=== PATIENT | female | born 1985 | race American Indian/Alaskan Native ===

== ENCOUNTER 2016-08-20 13:44 | Inpatient (IN) | payer MEDICAID ==
--- NOTE | 2016-08-20 13:53 | History and Physical Report ---
History of Present Illness Date of examination: 08/20/16 Date of admission: 08/20/16 13:44 Chief complaint: Induction of Labour History of present illness: 30-year-old at 37+5 wks (via 3rd tri sono) presents for induction of labor, [facility]. care complicated by morbid obesity, late presentation at > 30 weeks, chronic hypertension, GDM and HSV-2. She was seen by BALJEET, started on Aldomet 500 mg twice a day. She was also advised to provide a sugar log to [facility] on a weekly basis. 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 denies: smoking, alcohol abuse, prescription drug abuse, IV drug use - Obstetrical History Expected Date of Delivery: 09/05/16 Actual Gestation: 37 Week(s) 5 Day(s) : 4 Para: 2 Medications and Allergies Allergies Allergy/AdvReac Type Severity Reaction Status Date / Time No Known Allergies Allergy Unverified 05/30/15 20:33 Home Medications Medication Instructions Recorded Confirmed Last Taken Type amLODIPine [Norvasc] 5 mg PO DAILY 05/30/15 05/30/15 Unknown History Review of Systems Constitutional: no fever, no sweats Cardiovascular: high blood pressure, no chest pain, no syncope, no lightheadedness, no shortness of breath Respiratory: no shortness of breath, no dyspnea on exertion Gastrointestinal: no abdominal pain, no nausea, no vomiting Genitourinary: no vaginal bleeding, no vaginal discharge, no leakage of fluid - Physical Exam Cardiovascular: Regular rate, Normal S1, Normal S2 Lungs: Positive: Clear to auscultation, Normal air movement Abdomen: Positive: normal appearance, soft. Negative: distention, tenderness, guarding, rigidity Genitourinary (Female): Positive: normal external genitalia Uterus: Positive: enlarged (EFW ~ 3800). Negative: tender Extremities: Positive: normal - Obstetrical FHR: category 1 Cervical Dilatation: 4 Cervical Effacement Percentage: 80 station: -2 Results Result Diagrams: 08/20/16 16:10 All other labs normal. Assessment and Plan A: 30 y/o at 37+5 here for induction -BPP 03/10 today at [facility] Issues -GDMA 2 -CHTN on meds -Morbid Obesity -HSV 2 P: -Admit -Routine labour labs -Start Mag for persistent severe range BP's -SSI coverage -Induction with pitocin -Anticipate - Patient Problems (1) 37 or more weeks gestation of Current Visit: Yes Status: Acute (2) Hypertension affecting Current Visit: Yes Status: Acute (3) Gestational diabetes Current Visit: Yes Status: Acute (4) Non compliance with medical treatment Current Visit: Yes Status: Acute
[2016-08-20] MEDS ORDERED: PITOCin/NS 30 UNIT/500ML 500 ML IV SCH ×2 (14:00→14:40)
[2016-08-20] MEDS ORDERED: BRETHINE SUB-Q PRN (14:00)
[2016-08-20] MEDS ORDERED: BRETHINE IVP PRN (14:00)
[2016-08-20] MEDS ORDERED: ePHEDrine SULFATE IV PRN (14:00)
[2016-08-20] MEDS ORDERED: PITOCin/NS 20 UNIT/1000ML DRIP 1,000 ML IV SCH (14:00)
[2016-08-20] MEDS ORDERED: D50W (25GM) IV PRN (14:19)
[2016-08-20] MEDS ORDERED: NORMODYNE IV PRN (14:21)
[2016-08-20] MEDS ORDERED: APRESOLINE IV PRN (14:21)
[2016-08-20] MEDS ORDERED: MINERAL OIL PO PRN (14:35)
[2016-08-20] MEDS ORDERED: POLYCILLIN/NS 2 GM/100 ML 100 ML IV ONE (15:00)
[2016-08-20] MEDS ORDERED: XYLOCAINE 2% INFILTRATI ONE (15:00)
[2016-08-20] MEDS: LACTATED RINGERS 1,000 ML IV SCH (16:42)
[2016-08-20 17:13] LABS: Hematocrit 34.8 % (30.3-42.9); Hemoglobin 11.5 gm/dl (10.1-14.3); Mean Corpuscular HGB Conc 33 % (30-34); Mean Corpuscular Hemoglobin 29 pg (28-32); Mean Corpuscular Volume 87 fl (79-97); Platelet Count 153 K/mm3 (140-440); Red Blood Count 3.99 M/mm3 (3.65-5.03); Red Cell Distribution Width 15.1 % (13.2-15.2); White Blood Count 11.1 K/mm3 (4.5-11.0)
[2016-08-20 17:40] LABS: Alanine Aminotransferase 23 units/L (7-56); Albumin 3.7 g/dL (3.9-5); Albumin/Globulin Ratio 0.9 %; Alkaline Phosphatase 156 units/L (35-129); Bilirubin,Total 0.4 mg/dL (0.1-1.2); Total Protein 7.7 g/dL (6.3-8.2)
[2016-08-20 17:41] LABS: Bilirubin,Direct < 0.2 mg/dL (0-0.2); Bilirubin,Indirect 0.2 mg/dL
--- NOTE | 2016-08-20 17:50 | Event Note ---
Date: 08/20/16 Called to see patient refusing to have her insulin. Explained to her that she has gestational diabetes, and that we have her on a sliding scale protocol. Based on the protocol, she requires insulin at this time for her benefit and her baby's benefit. Explained that she might have to sign out AGAINST MEDICAL ADVICE if she chooses to refuse therapy. Patient has accepted insulin at this time
[2016-08-20] MEDS: ALDOMET PO SCH ×2 (19:26→22:00)
[2016-08-20] MEDS ORDERED: PEPCID PO ONE (20:54)
[2016-08-20] MEDS ORDERED: AMBIEN PO ONE (20:55)
[2016-08-20] MEDS: POLYCILLIN/NS 1 GM/50 ML 50 ML IV SCH (21:17)
[2016-08-21] MEDS: LACTATED RINGERS 1,000 ML IV SCH ×2 (01:35→13:25)
[2016-08-21] MEDS: POLYCILLIN/NS 1 GM/50 ML 50 ML IV SCH ×4 (02:45→18:25)
--- NOTE | 2016-08-21 06:33 | Progress Note ---
Assessment and Plan A: 30 y/o at 37+6 here for induction -BPP 03/10 today at [facility] Issues -GDMA 2 -CHTN on meds -Morbid Obesity -HSV 2 P: -Continue present care -Anticipate - Patient Problems (1) 37 or more weeks gestation of Current Visit: Yes Status: Acute (2) Hypertension affecting Current Visit: Yes Status: Acute (3) Gestational diabetes Current Visit: Yes Status: Acute (4) Non compliance with medical treatment Current Visit: Yes Status: Acute Subjective - Subjective Date of service: 08/21/16 Interval history: Patient seen and examined; she is on pit at 20 mu/min. BP and BS at acceptable levels On exam, she is 5-6/70/-2 and post cervix Still declines an epidural Patient reports: new complaints, movement normal, contractions, no loss of fluid, no vaginal bleeding Objective - Vital Signs Vital Signs: Vital Signs - 12hr 08/20/16 08/20/16 08/20/16 19:25 19:26 19:37 Pulse Rate 100 H 100 H 111 H Blood Pressure 129/93 129/93 O2 Sat by Pulse 98 Oximetry 08/20/16 08/20/16 08/20/16 19:42 19:47 19:52 Pulse Rate 110 H 102 H 103 H Blood Pressure O2 Sat by Pulse 97 98 98 Oximetry 08/20/16 08/20/16 08/20/16 19:57 20:02 20:07 Pulse Rate 107 H 105 H 102 H Blood Pressure O2 Sat by Pulse 98 98 98 Oximetry 08/20/16 08/20/16 08/20/16 20:12 20:17 20:30 Pulse Rate 106 H 108 H 106 H Blood Pressure O2 Sat by Pulse 100 98 99 Oximetry 08/20/16 08/20/16 08/20/16 20:34 20:35 20:40 Pulse Rate 99 H 101 H 99 H Blood Pressure 132/76 O2 Sat by Pulse 99 100 Oximetry 08/20/16 08/20/16 08/20/16 21:34 22:34 23:34 Pulse Rate 105 H 109 H 101 H Blood Pressure 130/90 125/79 114/56 O2 Sat by Pulse Oximetry 08/20/16 08/20/16 08/21/16 23:36 23:54 00:34 Pulse Rate 105 H 101 H 103 H Blood Pressure 113/56 112/57 117/58 O2 Sat by Pulse Oximetry 08/21/16 08/21/16 08/21/16 01:34 02:35 03:35 Pulse Rate 97 H 97 H 101 H Blood Pressure 124/61 140/69 118/66 O2 Sat by Pulse Oximetry 08/21/16 08/21/16 04:34 05:34 Pulse Rate 92 H 105 H Blood Pressure 109/55 117/59 O2 Sat by Pulse Oximetry - Exam FHR: category 1 Cervical Dilatation: 5.6 station: -2 - Labs Labs: Abnormal Labs 08/20/16 08/20/16 08/20/16 15:47 16:10 16:10 WBC 11.1 H POC Glucose 160 H Alkaline Phosphatase 156 H Albumin 3.7 L 08/20/16 08/20/16 22:01 23:32 WBC POC Glucose 69 L 142 H Alkaline Phosphatase Albumin Laboratory Results - last 24 hr 08/20/16 08/20/16 08/20/16 15:47 16:10 16:10 WBC 11.1 H RBC 3.99 Hgb 11.5 Hct 34.8 MCV 87 MCH 29 MCHC 33 RDW 15.1 Plt Count 153 POC Glucose 160 H Total Bilirubin Direct Bilirubin Indirect Bilirubin AST ALT Alkaline Phosphatase Total Protein Albumin Albumin/Globulin Ratio Blood Type O POSITIVE Antibody Screen Negative 08/20/16 08/20/16 08/20/16 16:10 22:01 23:32 WBC RBC Hgb Hct MCV MCH MCHC RDW Plt Count POC Glucose 69 L 142 H Total Bilirubin 0.4 Direct Bilirubin < 0.2 Indirect Bilirubin 0.2 AST 31 ALT 23 Alkaline Phosphatase 156 H Total Protein 7.7 Albumin 3.7 L Albumin/Globulin Ratio 0.9 Blood Type Antibody Screen 08/21/16 06:08 WBC RBC Hgb Hct MCV MCH MCHC RDW Plt Count POC Glucose 81 Total Bilirubin Direct Bilirubin Indirect Bilirubin AST ALT Alkaline Phosphatase Total Protein Albumin Albumin/Globulin Ratio Blood Type Antibody Screen
[2016-08-21] MEDS ORDERED: TYLENOL PO ONE (12:15)
--- NOTE | 2016-08-21 12:16 | Progress Note ---
Assessment and Plan - Patient Problems (1) 37 or more weeks gestation of Current Visit: Yes Status: Acute (2) Hypertension affecting Current Visit: Yes Status: Acute (3) Gestational diabetes Current Visit: Yes Status: Acute (4) Non compliance with medical treatment Current Visit: Yes Status: Acute Subjective - Subjective Date of service: 08/21/16 Interval history: Patient seen and examined; she is on pit at 20 mu/min. BP and BS at acceptable levels On exam, she is 5-6/70/-2 and post cervix Still declines an epidural Patient reports: new complaints, movement normal, contractions, no loss of fluid, no vaginal bleeding Objective - Vital Signs Vital Signs: Vital Signs - 12hr 08/21/16 08/21/16 08/21/16 00:34 01:34 02:35 Temperature Pulse Rate 103 H 97 H 97 H Respiratory Rate Blood Pressure 117/58 124/61 140/69 O2 Sat by Pulse Oximetry 08/21/16 08/21/16 08/21/16 03:35 04:34 05:34 Temperature Pulse Rate 101 H 92 H 105 H Respiratory Rate Blood Pressure 118/66 109/55 117/59 O2 Sat by Pulse Oximetry 08/21/16 08/21/16 08/21/16 06:35 08:34 08:45 Temperature 98.5 F Pulse Rate 106 H 108 H 110 H Respiratory 18 Rate Blood Pressure 130/77 124/78 O2 Sat by Pulse 98 Oximetry 08/21/16 08/21/16 08/21/16 08:50 08:55 09:00 Temperature Pulse Rate 116 H 104 H 109 H Respiratory Rate Blood Pressure O2 Sat by Pulse 97 98 97 Oximetry 08/21/16 08/21/16 08/21/16 10:34 11:50 11:53 Temperature Pulse Rate 106 H 103 H 107 H Respiratory Rate Blood Pressure 110/68 126/79 O2 Sat by Pulse 98 Oximetry 08/21/16 08/21/16 08/21/16 11:55 12:00 12:05 Temperature 98.7 F Pulse Rate 102 H 105 H 109 H Respiratory 18 Rate Blood Pressure O2 Sat by Pulse 97 97 98 Oximetry - Exam FHR: category 1 - Labs Labs: Abnormal Labs 08/20/16 08/20/16 08/20/16 15:47 16:10 16:10 WBC 11.1 H POC Glucose 160 H Alkaline Phosphatase 156 H Albumin 3.7 L 08/20/16 08/20/16 22:01 23:32 WBC POC Glucose 69 L 142 H Alkaline Phosphatase Albumin Laboratory Results - last 24 hr 08/20/16 08/20/16 08/20/16 15:47 16:10 16:10 WBC 11.1 H RBC 3.99 Hgb 11.5 Hct 34.8 MCV 87 MCH 29 MCHC 33 RDW 15.1 Plt Count 153 POC Glucose 160 H Total Bilirubin Direct Bilirubin Indirect Bilirubin AST ALT Alkaline Phosphatase Total Protein Albumin Albumin/Globulin Ratio Blood Type O POSITIVE Antibody Screen Negative 08/20/16 08/20/16 08/20/16 16:10 22:01 23:32 WBC RBC Hgb Hct MCV MCH MCHC RDW Plt Count POC Glucose 69 L 142 H Total Bilirubin 0.4 Direct Bilirubin < 0.2 Indirect Bilirubin 0.2 AST 31 ALT 23 Alkaline Phosphatase 156 H Total Protein 7.7 Albumin 3.7 L Albumin/Globulin Ratio 0.9 Blood Type Antibody Screen 08/21/16 06:08 WBC RBC Hgb Hct MCV MCH MCHC RDW Plt Count POC Glucose 81 Total Bilirubin Direct Bilirubin Indirect Bilirubin AST ALT Alkaline Phosphatase Total Protein Albumin Albumin/Globulin Ratio Blood Type Antibody Screen
--- NOTE | 2016-08-21 17:16 | Progress Note ---
Assessment and Plan A: 30 y/o at 37+6 here for induction -Cat 1 tracing Issues -GDMA 2 -CHTN on meds -Morbid Obesity -HSV 2 P: -AROMed with clear fluid -IUPC placed -Anticipate - Patient Problems (1) 37 or more weeks gestation of Current Visit: Yes Status: Acute (2) Hypertension affecting Current Visit: Yes Status: Acute (3) Gestational diabetes Current Visit: Yes Status: Acute (4) Non compliance with medical treatment Current Visit: Yes Status: Acute Subjective - Subjective Date of service: 08/21/16 Interval history: Patient seen and examined; she is on pit at 12 mu/min. BP and BS at acceptable levels On exam, she is 6/70/-1 and post cervix Still declines an epidural Patient reports: new complaints, movement normal, contractions, no loss of fluid, no vaginal bleeding Objective - Vital Signs Vital Signs: Vital Signs - 12hr 08/21/16 08/21/16 08/21/16 05:34 06:35 08:34 Temperature Pulse Rate 105 H 106 H 108 H Respiratory Rate Blood Pressure 117/59 130/77 124/78 O2 Sat by Pulse Oximetry 08/21/16 08/21/16 08/21/16 08:45 08:50 08:55 Temperature 98.5 F Pulse Rate 110 H 116 H 104 H Respiratory 18 Rate Blood Pressure O2 Sat by Pulse 98 97 98 Oximetry 08/21/16 08/21/16 08/21/16 09:00 10:34 11:50 Temperature Pulse Rate 109 H 106 H 103 H Respiratory Rate Blood Pressure 110/68 O2 Sat by Pulse 97 98 Oximetry 08/21/16 08/21/16 08/21/16 11:53 11:55 12:00 Temperature 98.7 F Pulse Rate 107 H 102 H 105 H Respiratory 18 Rate Blood Pressure 126/79 O2 Sat by Pulse 97 97 Oximetry 08/21/16 08/21/16 08/21/16 12:05 12:25 12:51 Temperature Pulse Rate 109 H 104 H 106 H Respiratory Rate Blood Pressure 123/68 O2 Sat by Pulse 98 99 Oximetry 08/21/16 08/21/16 08/21/16 12:56 13:25 13:55 Temperature Pulse Rate 104 H 105 H 103 H Respiratory Rate Blood Pressure 120/75 120/76 120/75 O2 Sat by Pulse Oximetry 08/21/16 08/21/16 08/21/16 14:25 14:55 15:13 Temperature Pulse Rate 101 H 96 H 101 H Respiratory Rate Blood Pressure 110/58 115/77 O2 Sat by Pulse 98 Oximetry 08/21/16 08/21/16 08/21/16 15:18 15:25 15:55 Temperature Pulse Rate 108 H 99 H 101 H Respiratory Rate Blood Pressure 122/75 132/77 O2 Sat by Pulse 98 Oximetry 08/21/16 08/21/16 08/21/16 16:27 16:43 16:48 Temperature Pulse Rate 100 H 105 H 105 H Respiratory Rate Blood Pressure 137/84 O2 Sat by Pulse 99 98 Oximetry 08/21/16 08/21/16 16:53 16:55 Temperature Pulse Rate 104 H 105 H Respiratory Rate Blood Pressure 118/91 O2 Sat by Pulse 98 Oximetry - Exam FHR: category 1 Cervical Dilatation: 6 station: -1 - Labs Labs: Abnormal Labs 08/20/16 08/20/16 08/20/16 15:47 16:10 16:10 WBC 11.1 H POC Glucose 160 H Alkaline Phosphatase 156 H Albumin 3.7 L 08/20/16 08/20/16 22:01 23:32 WBC POC Glucose 69 L 142 H Alkaline Phosphatase Albumin Laboratory Results - last 24 hr 08/20/16 08/20/16 08/20/16 16:10 16:10 22:01 POC Glucose 69 L Total Bilirubin 0.4 Direct Bilirubin < 0.2 Indirect Bilirubin 0.2 AST 31 ALT 23 Alkaline Phosphatase 156 H Total Protein 7.7 Albumin 3.7 L Albumin/Globulin Ratio 0.9 Blood Type O POSITIVE Antibody Screen Negative 08/20/16 08/21/16 23:32 06:08 POC Glucose 142 H 81 Total Bilirubin Direct Bilirubin Indirect Bilirubin AST ALT Alkaline Phosphatase Total Protein Albumin Albumin/Globulin Ratio Blood Type Antibody Screen
[2016-08-21] MEDS ORDERED: SUBLIMAZE IV ONE (17:25)
[2016-08-21] MEDS ORDERED: SUBLIMAZE ONE (17:32)
[2016-08-21] MEDS: ALDOMET PO SCH (17:40)
[2016-08-21] MEDS ORDERED: HEMABATE IM ONE ×2 (18:58→19:02)
--- NOTE | 2016-08-21 19:14 | Procedure Note ---
OB Delivery Note - Delivery Date of Delivery: 08/21/16 Surgeon: SIERRA DAVID Estimated blood loss: other (600 cc) - Vaginal Delivery presentation: vertex Delivery position: OA Intrapartum events: gestational hypertension (Chronic HTN), hemorrhage, other(please specify) (Diabetes Mellitus) Delivery induction: oxytocin Delivery augmentation: rupture of membranes, pitocin Delivery monitor: external FHT, external uterine, internal uterine Route of delivery: Delivery placenta: spontaneous Delivery cord: 3 umbilical vessels Episiotomy: none Delivery laceration: none Anesthesia: none - A at 1 minute: 8 at 5 minutes: 9 Infant Gender: Female (Del @ 18:54, weight is 7#0 or 3168 gms)
[2016-08-21] MEDS ORDERED: LANSINOH TP PRN (19:15)
[2016-08-21] MEDS ORDERED: ANUCORT-HC PR PRN (19:15)
[2016-08-21] MEDS ORDERED: ZOFRAN IV PRN (19:15)
[2016-08-21] MEDS ORDERED: BENADRYL PO PRN (19:15)
[2016-08-21] MEDS ORDERED: DERMOPLAST TP PRN (19:15)
[2016-08-21] MEDS ORDERED: TYLENOL PO PRN (19:15)
[2016-08-21] MEDS ORDERED: PHENERGAN PO PRN (19:15)
[2016-08-21] MEDS ORDERED: PHENERGAN PR PRN (19:15)
[2016-08-21] MEDS ORDERED: NORCO 5/325 PO PRN (19:15)
[2016-08-21] MEDS ORDERED: DULCOLAX PR PRN (19:15)
[2016-08-21] MEDS ORDERED: MILK OF MAGNESIA PO PRN (19:15)
[2016-08-21] MEDS ORDERED: TUCKS PAD TP PRN (19:15)
[2016-08-21] MEDS ORDERED: SENOKOT S PO SCH (20:00)
[2016-08-21] MEDS ORDERED: SODIUM CHLORIDE FLUSH SYRINGE 10 ML IV NR (20:00)
[2016-08-21] MEDS ORDERED: PITOCin/NS 20 UNIT/1000ML DRIP 1,000 ML IV SCH (20:00)
[2016-08-21] MEDS ORDERED: COLACE PO SCH (22:00)
[2016-08-21] MEDS: MOTRIN PO SCH (22:41)
[2016-08-21] MEDS: FEOSOL PO SCH (22:42)
[2016-08-22] MEDS: ALDOMET PO SCH ×2 (05:20→22:00)
[2016-08-22] MEDS: MOTRIN PO SCH ×3 (05:21→18:30)
--- NOTE | 2016-08-22 07:14 | Progress Note ---
Assessment and Plan - Patient Problems (1) (normal spontaneous vaginal delivery) Diagnosis Date: 08/22/16 Current Visit: Yes Status: Acute Plan to address problem: A: S/P - PPD #1 Doing well Chronic hypertension - stable on Aldomet 500mg BID GDM - stable without medication P: May go home tomorrow Subjective - Subjective Date of service: 08/22/16 Principal diagnosis: s/p - PPD #1 Interval history: Pt is feeling well without complaints. Bleeding improved. Patient reports: appetite normal, voiding normally, pain well controlled, flatus , ambulating normally [place]: doing well, nursing well Objective - Vital Signs Latest vital signs: Vital Signs Temp Pulse Pulse Resp BP BP Pulse Ox 08/22/16 05:20 90 100/52 08/22/16 04:35 98.0 F 82 20 101/56 08/22/16 00:40 98.2 F 96 H 20 118/60 08/21/16 21:45 98.2 F 91 H 20 128/77 08/21/16 20:38 90 140/73 08/21/16 20:23 95 H 136/86 08/21/16 19:53 88 135/93 08/21/16 19:38 99 H 131/88 08/21/16 19:23 101 H 150/82 08/21/16 19:10 97.1 F L 20 08/21/16 18:29 90 100 08/21/16 18:25 86 140/80 08/21/16 18:24 86 94 08/21/16 18:19 95 H 96 08/21/16 18:16 100 H 94 08/21/16 18:15 90 141/83 08/21/16 18:14 88 99 08/21/16 18:05 20 08/21/16 18:01 106 H 99 08/21/16 17:56 114 H 169/103 100 08/21/16 17:51 99 H 99 08/21/16 17:46 111 H 100 08/21/16 17:41 102 H 99 08/21/16 17:40 101 H 141/72 08/21/16 17:35 20 08/21/16 17:28 111 H 99 08/21/16 17:26 100 H 141/72 08/21/16 17:23 106 H 99 08/21/16 17:18 109 H 98 08/21/16 17:13 106 H 98 08/21/16 16:55 105 H 118/91 08/21/16 16:53 104 H 98 08/21/16 16:48 105 H 98 08/21/16 16:45 98.4 F 20 08/21/16 16:43 105 H 99 08/21/16 16:27 100 H 137/84 08/21/16 15:55 101 H 132/77 08/21/16 15:25 99 H 122/75 08/21/16 15:18 108 H 98 08/21/16 15:13 101 H 98 08/21/16 14:55 96 H 115/77 08/21/16 14:25 101 H 110/58 08/21/16 13:55 103 H 120/75 08/21/16 13:25 105 H 120/76 08/21/16 12:56 104 H 120/75 08/21/16 12:51 106 H 99 08/21/16 12:25 104 H 123/68 08/21/16 12:05 109 H 98 08/21/16 12:00 105 H 97 08/21/16 11:55 98.7 F 102 H 18 97 08/21/16 11:53 107 H 126/79 08/21/16 11:50 103 H 98 08/21/16 10:34 106 H 110/68 08/21/16 09:00 109 H 97 08/21/16 08:55 104 H 98 08/21/16 08:50 116 H 97 08/21/16 08:45 98.5 F 110 H 18 98 08/21/16 08:34 108 H 124/78 Intake and Output 08/21/16 08/22/16 08/22/16 22:59 06:59 14:59 Intake Total 958 480 Balance 958 480 Intake: IV 718 Lactated Ringers 1,000 ml 656 @ 125 mls/hr IV DIRECT DANIEL Rx#:[id number] PITOCin/NS 30 UNIT/500ML 62 500 ML @ 2 mls/hr IV TITR DANIEL Rx#:[id number] Oral 240 480 Other: Total, Intake Amount 240 240 # Voids Void 1 1 Estimated Blood Loss 600 - Exam Breasts: Present: deferred Cardiovascular: Present: Regular rate Lungs: Present: Clear to auscultation Abdomen: Present: normal appearance, soft Uterus: Present: normal, firm, fundal height below umbilicus Extremities: Present: normal - Labs Labs: Abnormal lab results 08/21/16 08/21/16 Range/Units 19:48 22:58 POC Glucose 108 H 108 H (70-105) Laboratory Tests 08/20/16 08/20/16 08/20/16 15:47 16:10 16:10 WBC 11.1 H RBC 3.99 Hgb 11.5 Hct 34.8 MCV 87 MCH 29 MCHC 33 RDW 15.1 Plt Count 153 POC Glucose 160 H Total Bilirubin Direct Bilirubin Indirect Bilirubin AST ALT Alkaline Phosphatase Total Protein Albumin Albumin/Globulin Ratio Blood Type O POSITIVE Antibody Screen Negative 08/20/16 08/20/16 08/20/16 16:10 22:01 23:32 WBC RBC Hgb Hct MCV MCH MCHC RDW Plt Count POC Glucose 69 L 142 H Total Bilirubin 0.4 Direct Bilirubin < 0.2 Indirect Bilirubin 0.2 AST 31 ALT 23 Alkaline Phosphatase 156 H Total Protein 7.7 Albumin 3.7 L Albumin/Globulin Ratio 0.9 Blood Type Antibody Screen 08/21/16 08/21/16 08/21/16 06:08 19:48 22:58 WBC RBC Hgb Hct MCV MCH MCHC RDW Plt Count POC Glucose 81 108 H 108 H Total Bilirubin Direct Bilirubin Indirect Bilirubin AST ALT Alkaline Phosphatase Total Protein Albumin Albumin/Globulin Ratio Blood Type Antibody Screen 08/22/16 08/22/16 07:06 08:12 WBC RBC Hgb 9.1 L Hct 27.3 L D MCV MCH MCHC RDW Plt Count POC Glucose 73 Total Bilirubin Direct Bilirubin Indirect Bilirubin AST ALT Alkaline Phosphatase Total Protein Albumin Albumin/Globulin Ratio Blood Type Antibody Screen
[2016-08-22 07:41] LABS: Hematocrit 27.3 % (30.3-42.9); Hemoglobin 9.1 gm/dl (10.1-14.3)
--- NOTE | 2016-08-22 08:57 | Discharge Summary ---
Providers - Providers Date of Admission: 08/20/16 13:44 Date of discharge: 08/23/16 Attending physician: SIERRA DAVID Primary care physician: RADAMES MAN Hospitalization Reason for admission: induction of labor, IUP at term, other (Chronic hypertension; GDM) Delivery: Episiotomy: none Laceration: none Other procedures: none complications: none Discharge diagnosis: IUP at term delivered [place] baby: female Hospital course: Unremarkable. Condition at discharge: Good Disposition: DISCHARGED TO HOME OR SELFCARE - Discharge Diagnoses (1) (normal spontaneous vaginal delivery) Status: Resolved (2) Chronic hypertension Status: Chronic Plan - Discharge Medications Prescriptions: Acetaminophen [Acetaminophen TAB] 325 mg PO Q6HR PRN #30 tablet PRN Reason: Pain Ferrous Sulfate [Feosol 325 MG tab] 325 mg PO BID #60 tablet Methyldopa [Aldomet] 500 mg PO BID #60 tablet Multivitamin with Iron [Multivitamins with Iron] 1 each PO DAILY #30 tablet - Provider Discharge Summary Activity: routine, no sex for 6 weeks, no heavy lifting 4 weeks, no strenuous exercise Diet: routine Instructions: routine Additional instructions: [] Smoking cessation referral if applicable(refer to patient education folder for contact #) [] Refer to [facility]'s [facility] Booklet Call your doctor immediately for: * Fever > 100.5 * Heavy vaginal bleeding ( >1 pad per hour) * Severe persistent headache * Shortness of breath * Reddened, hot, painful area to leg or breast * Drainage or odor from incision. * Keep incision clean and dry at all times and follow doctor's instructions regarding bathing/showering Follow up in office in 1 week for BP and BS check - Follow up plan Follow up: RADAMES MAN MD [Primary Care Provider] - 7 Days JAROD MONSIVAIS MD [Staff Physician] - 7 Days
[2016-08-22] MEDS ORDERED: PRENATAL VITAMIN PO SCH (10:00)
[2016-08-22] MEDS: FEOSOL PO SCH ×2 (10:07→22:00)
[2016-08-23] MEDS: MOTRIN PO SCH
[2016-08-23] MEDS: ALDOMET PO SCH (10:35)
[2016-08-23 15:44] VITALS: BP 130/80
== END 2016-08-23 14:50 | disposition home or self-care (01) | DRG 774 ==
LOC: LD 13:44 → OB 08-21 21:02
PROVIDERS: ADMIT Obstetrics & Gynecology Gynecology; ATTEND Obstetrics & Gynecology Gynecology
PROC: 10E0XZZ Delivery of Products of Conception, External Approach (ICD-10-PCS; principal; 2016-08-21)
PROC: 10907ZC Drainage of Amniotic Fluid, Therapeutic from Products of Conception, Via Natural or Artificial Opening (ICD-10-PCS; 2016-08-21)
PROC: 3E033VJ Introduction of Other Hormone into Peripheral Vein, Percutaneous Approach (ICD-10-PCS; 2016-08-21)
PROC: 10H07YZ Insertion of Other Device into Products of Conception, Via Natural or Artificial Opening (ICD-10-PCS; 2016-08-21)
DX: O24.429 Gestational diabetes mellitus in childbirth, unspecified control (principal); O72.1 Other immediate postpartum hemorrhage; O99.214 Obesity complicating childbirth; E66.01 Morbid (severe) obesity due to excess calories; B00.9 Herpesviral infection, unspecified; Z37.0 Single live birth; Z3A.37 37 weeks gestation of pregnancy; Z68.35 Body mass index [BMI] 35.0-35.9, adult; Z91.14 Patient's other noncompliance with medication regimen; O10.913 Unspecified pre-existing hypertension complicating pregnancy, third trimester; O98.513 Other viral diseases complicating pregnancy, third trimester
CPT/HCPCS: 36415; 80074; 82962; 85014; 85018; 85027; 86850; 86900; 86901; 99211; A6250; G0463; J0290; J1815; J2590; J3010; J7120

== ENCOUNTER 2018-08-14 18:50 | Emergency (ER) | payer MEDICAID ==
[2018-08-14 19:21] VITALS: BP 162/99
[2018-08-14 20:24] LABS: Basophils % (Auto) 0.5 % (0.0-1.8); Eosinophils % (Auto) 0.5 % (0.0-4.3); Hematocrit 33.7 % (30.3-42.9); Hemoglobin 11.6 gm/dl (10.1-14.3); Lymphocytes % (Auto) 32.1 % (13.4-35.0); Mean Corpuscular HGB Conc 35 % (30-34); Mean Corpuscular Volume 92 fl (79-97); Monocytes # (Auto) 0.5 K/mm3 (0.0-0.8); Monocytes % (Auto) 8.3 % (0.0-7.3); Platelet Count 146 K/mm3 (140-440); Red Blood Count 3.66 M/mm3 (3.65-5.03); Red Cell Distribution Width 13.8 % (13.2-15.2)
[2018-08-14 20:30] LABS: Bilirubin,Urine NEG (Negative); Blood,Urine LG (Negative); Color,Urine Yellow (Yellow); Mucus,Urine FEW /HPF; Protein,Urine <15 mg/dL mg/dL (Negative); Urobilinogen,Urine < 2.0 mg/dL (<2.0)
[2018-08-14 20:34] LABS: Alanine Aminotransferase 20 units/L (7-56); Albumin 4.2 g/dL (3.9-5); BUN/Creatinine Ratio 13; Blood Urea Nitrogen 10 mg/dL (7-17); Calcium 9.5 mg/dL (8.4-10.2); Hemolysis Index 2
[2018-08-14] MEDS ORDERED: NORMODYNE PO ONE (21:10)
--- NOTE | 2018-08-14 21:11 | Emergency Department Report ---
ED Female HPI - General Chief complaint: Vaginal Bleeding Stated complaint: POSS MISCARRIAGE Time Seen by Provider: 08/14/18 21:05 Source: patient Mode of arrival: Ambulatory Limitations: No Limitations - History of Present Illness Initial comments: Patient 32-year-old [place] female A0 is currently 12 weeks followed by [facility] Dr. Zimmerman states spotting for the last month started bleeding today was advised to report to ED for ultrasound symptoms described as not lower abdominal cramping 4/10 symptoms exacerbated by movement and palpation symptoms relieved by nothing patient denies vaginal ultrasound noted urinary urgency frequency or dysuria no hematuria patient does have history of hypertension denies hx of preeclampsia or gestational diabetes, BP controlled with labetalol 100 mg by mouth twice a day advises adhering same has not had evening dose we'll prescribe same at this time MD Complaint: vaginal bleeding Onset/Timin Radiation: non-radiating Severity: moderate Severity scale (0 -10): 4 Quality: cramping Consistency: constant Improves with: none Worsens with: movement Are you Now?: Yes Last Menstrual Period: 05/18/18 EDC: 02/22/19 Associated Symptoms: vaginal bleeding - Related Data Sexually active: Yes : 5 Para: 4 A: 0 Home Medications Medication Instructions Recorded Confirmed Last Taken amLODIPine [Norvasc] 5 mg PO DAILY 05/30/15 05/30/15 Unknown Previous Rx's Medication Instructions Recorded Last Taken Type Acetaminophen [Acetaminophen TAB] 325 mg PO Q6HR PRN #30 tablet 08/21/16 Unknown Rx Multivitamin with Iron 1 each PO DAILY #30 tablet 08/21/16 Unknown Rx [Multivitamins with Iron] Ferrous Sulfate [Feosol 325 MG tab] 325 mg PO BID #60 tablet 08/22/16 Unknown Rx Methyldopa [Aldomet] 500 mg PO BID #60 tablet 08/22/16 Unknown Rx Dicyclomine [Bentyl] 10 mg PO QID PRN #30 capsule 08/15/18 Unknown Rx traMADol [Ultram] 50 mg PO Q6HR PRN #12 tablet 08/15/18 Unknown Rx Allergies Allergy/AdvReac Type Severity Reaction Status Date / Time No Known Allergies Allergy Unverified 05/30/15 20:33 ED Review of Systems ROS: Stated complaint: POSS MISCARRIAGE Other details as noted in HPI ED Past Medical Hx - Past Medical History Previous Medical History?: Yes Hx Hypertension: Yes Hx Congestive Heart Failure: No Hx Diabetes: No Hx Deep Vein Thrombosis: No Hx Renal Disease: No Hx Sickle Cell Disease: No Hx Seizures: No Hx Asthma: No Hx COPD: No Hx HIV: No - Surgical History Past Surgical History?: No - Social History Smoking Status: Former Smoker Substance Use Type: None, Alcohol - Medications Home Medications: Home Medications Medication Instructions Recorded Confirmed Last Taken Type amLODIPine [Norvasc] 5 mg PO DAILY 05/30/15 05/30/15 Unknown History Acetaminophen [Acetaminophen TAB] 325 mg PO Q6HR PRN #30 tablet 08/21/16 Unknown Rx Multivitamin with Iron 1 each PO DAILY #30 tablet 08/21/16 Unknown Rx [Multivitamins with Iron] Ferrous Sulfate [Feosol 325 MG tab] 325 mg PO BID #60 tablet 08/22/16 Unknown Rx Methyldopa [Aldomet] 500 mg PO BID #60 tablet 08/22/16 Unknown Rx Dicyclomine [Bentyl] 10 mg PO QID PRN #30 capsule 08/15/18 Unknown Rx traMADol [Ultram] 50 mg PO Q6HR PRN #12 tablet 08/15/18 Unknown Rx ED Physical Exam - General Limitations: No Limitations General appearance: alert, in no apparent distress - Head Head exam: Present: atraumatic, normocephalic - Eye Eye exam: Present: normal appearance - ENT ENT exam: Present: mucous membranes moist - Neck Neck exam: Present: normal inspection - Respiratory Respiratory exam: Present: normal lung sounds bilaterally. Absent: respiratory distress, wheezes, chest wall tenderness - Cardiovascular Cardiovascular Exam: Present: regular rate, normal rhythm, normal heart sounds. Absent: systolic murmur, diastolic murmur, rubs, gallop - GI/Abdominal GI/Abdominal exam: Present: soft, normal bowel sounds. Absent: tenderness, guarding, rebound, bruit, hernia - Rectal Rectal exam: Present: deferred - Extremities Exam Extremities exam: Present: normal inspection - Back Exam Back exam: Present: normal inspection - Neurological Exam Neurological exam: Present: alert, oriented X3 - Psychiatric Psychiatric exam: Present: normal affect, normal mood - Skin Skin exam: Present: warm, dry, intact, normal color. Absent: rash ED Course Vital Signs 08/14/18 08/14/18 08/14/18 19:19 19:26 21:28 Temperature 99.7 F H 99.7 F H Pulse Rate 104 H 97 H Respiratory 18 Rate Blood Pressure 162/99 162/99 162/99 O2 Sat by Pulse 100 100 Oximetry ED Medical Decision Making - Lab Data Result diagrams: 08/14/18 19:58 08/14/18 19:58 Labs 08/14/18 08/14/18 08/14/18 19:58 19:58 19:58 WBC 6.3 RBC 3.66 Hgb 11.6 Hct 33.7 MCV 92 MCH 32 MCHC 35 H RDW 13.8 Plt Count 146 Lymph % (Auto) 32.1 [place] % (Auto) 8.3 H Eos % (Auto) 0.5 Baso % (Auto) 0.5 Lymph # 2.0 [place] # 0.5 Eos # 0.0 Baso # 0.0 Seg Neutrophils % 58.6 Seg Neutrophils # 3.7 Sodium 137 Potassium 4.1 Chloride 100.1 Carbon Dioxide 26 Anion Gap 15 BUN 10 Creatinine 0.8 Estimated GFR > 60 BUN/Creatinine Ratio 13 Glucose 96 Calcium 9.5 Total Bilirubin 0.30 AST 29 ALT 20 Alkaline Phosphatase 48 Total Protein 8.1 Albumin 4.2 Albumin/Globulin Ratio 1.1 HCG, Qual Positive HCG, Quant Urine Color Urine Turbidity Urine pH Ur Specific [place] Urine Protein Urine Glucose (UA) Urine Ketones Urine Blood Urine Nitrite Urine Bilirubin Urine Urobilinogen Ur Leukocyte Esterase Urine WBC (Auto) Urine RBC (Auto) U Epithel Cells (Auto) Urine Mucus Blood Type Antibody Screen 08/14/18 08/14/18 08/14/18 21:17 21:17 Unknown WBC RBC Hgb Hct MCV MCH MCHC RDW Plt Count Lymph % (Auto) [place] % (Auto) Eos % (Auto) Baso % (Auto) Lymph # [place] # Eos # Baso # Seg Neutrophils % Seg Neutrophils # Sodium Potassium Chloride Carbon Dioxide Anion Gap BUN Creatinine Estimated GFR BUN/Creatinine Ratio Glucose Calcium Total Bilirubin AST ALT Alkaline Phosphatase Total Protein Albumin Albumin/Globulin Ratio HCG, Qual HCG, Quant 8382 H Urine Color Yellow Urine Turbidity Clear Urine pH 6.0 Ur Specific [place] 1.024 Urine Protein <15 mg/dl Urine Glucose (UA) Neg Urine Ketones Neg Urine Blood Lg Urine Nitrite Neg Urine Bilirubin Neg Urine Urobilinogen < 2.0 Ur Leukocyte Esterase Neg Urine WBC (Auto) 2.0 Urine RBC (Auto) 3.0 U Epithel Cells (Auto) 1.0 Urine Mucus Few Blood Type O POSITIVE Antibody Screen Negative - Radiology Data Radiology results: report reviewed, image reviewed Findings [facility] [address] [place] [address] Ultrasound Report Signed Patient: MYRNA MARTÍNEZ MR#: [id number] : 1985 Acct:[id number] Age/Sex: 32 / F ADM Date: 08/14/18 Loc: ED Attending Dr: Ordering Physician: POONAM REDDY NP Date of Service: 08/14/18 Procedure(s): US OB <= 14 weeks fetus Accession Number(s): [id number] cc: POONAM REDDY NP FINAL REPORT PROCEDURE: Transabdominal obstetrical ultrasound. TECHNIQUE: Real-time transabdominal sonography of the uterus, placenta, amniotic fluid, adnexa, and fetus was performed with image documentation. Measurements were obtained to determine age/size. M-mode Doppler was used to document heartbeat. CPT 77112 HISTORY: Vaginal bleeding, possible . COMPARISON: No prior studies are available for comparison. FINDINGS: Image quality is limited because the patient's bladder was empty. The uterus measures approximately 10.9 centimeters x 5.6 centimeters x 5.9 centimeters. The myometrium is grossly normal. There is an intrauterine gestational sac. A pole is present. There is no cardiac activity detected. The crown-rump length measurement is 1.33 centimeters. This indicates a menstrual age of approximately 7 weeks 4 days. The ovaries are not visualized. IMPRESSION: Intrauterine demise. Transcribed By: [facility] Dictated By: YUN WANG MD Electronically Authenticated By: YUN WANG MD Signed Date/Time: 08/14/18 5679 - Medical Decision Making Ultrasound suggestive of demise there is moderate bleeding vaginal no hemorrhage . No foreign bodies plan patient will follow up with [facility] in 2 days patient will return to emergency department should symptoms worsen patient and verbalized agreement and understanding with discharge plan patient will be DC'd home in stable condition at this time. Critical care attestation.: If time is entered above; I have spent that time in minutes in the direct care of this critically ill patient, excluding procedure time. ED Disposition Clinical Impression: Miscarriage Disposition: DC-01 TO HOME OR SELFCARE Is pt being admited?: No Does the pt Need Aspirin: No Condition: Stable Instructions: Spontaneous Miscarriage (ED) Prescriptions: Dicyclomine [Bentyl] 10 mg PO QID PRN #30 capsule PRN Reason: abdominal spasm traMADol [Ultram] 50 mg PO Q6HR PRN #12 tablet PRN Reason: Pain Referrals: JAROD MONSIVAIS MD [Primary Care Provider] - 3-5 Days [facility] [Provider Group] - 3-5 Days Forms: Work/School Release Form(ED) Time of Disposition: 00:26
--- NOTE | 2018-08-14 23:44 | Ultrasound Report ---
FINAL REPORT PROCEDURE: Transabdominal obstetrical ultrasound. TECHNIQUE: Real-time transabdominal sonography of the uterus, placenta, amniotic fluid, adnexa, and fetus was performed with image documentation. Measurements were obtained to determine age/size. M-mode Doppler was used to document heartbeat. CPT 50385 HISTORY: Vaginal bleeding, possible . COMPARISON: No prior studies are available for comparison. FINDINGS: Image quality is limited because the patient's bladder was empty. The uterus measures approximately 1 0.9 centimeters x 5.6 centimeters x 5.9 centimeters. The myometrium is grossly normal. There is an in trauterine gestational sac. A pole is present. There is no cardiac activity detected. The crown -rump length measurement is 1.33 centimeters. This indicates a menstrual age of approximately 7 weeks 4 days. The ovaries are not visualized. IMPRESSION: Intrauterine demise.
--- NOTE | 2018-08-14 23:46 | Ultrasound Report ---
FINAL REPORT PROCEDURE: Transvaginal obstetrical ultrasound. TECHNIQUE: Real-time transvaginal sonography of the uterus, placenta, amniotic fluid, adnexa, and fe tus was performed with image documentation. Measurements were obtained to determine age/size. M -mode Doppler was used to document heartbeat. CPT 06262 HISTORY: Vaginal bleeding, possible . COMPARISON: No prior studies are available for comparison. FINDINGS: There is an intrauterine gestational sac. A pole is present. The crown-rump length measurement is 2.25 centimeters. This indicates a menstrual age of 8 weeks 6 days. There is no cardiac activity i dentified. Both ovaries appear normal with follicles. There is a dominant follicle in the left ovary measuring 1.5 centimeters in maximum dimension. There is no fluid in the cul-de-sac. IMPRESSION: Intrauterine demise.
[2018-08-15] MEDS ORDERED: NORCO 5/325 PO ONE (00:22)
== END 2018-08-15 00:34 | disposition home or self-care (01) ==
LOC: ED 18:50
DX: O03.9 Complete or unspecified spontaneous abortion without complication (principal); I10 Essential (primary) hypertension; Z87.891 Personal history of nicotine dependence; Z79.899 Other long term (current) drug therapy; Z3A.01 Less than 8 weeks gestation of pregnancy
CPT/HCPCS: 36415; 76801; 76817; 80053; 81001; 84702; 84703; 85025; 86850; 86900; 86901

== ENCOUNTER 2020-06-17 13:58 | Emergency (ER) | payer MEDICAID ==
[2020-06-17 14:07] VITALS: BP 178/111
--- NOTE | 2020-06-17 14:29 | Emergency Department Report ---
ED Upper Extremity Inj HPI - General Chief Complaint: Extremity Injury, Upper Stated Complaint: LEFT WRIST INJURY/WORK RELATED Source: patient Mode of arrival: Ambulatory Limitations: No Limitations - History of Present Illness Initial Comments: 34-year-old -[place] female presents to the emergency room for left wrist pain that she heard at work yesterday. Patient states that she was pushing carts and felt something pop. Patient comes in with pain and swelling. Patient has not taken anything for pain. Past medical history of hypertension. Patient is currently on amlodipine 10 mg daily. MD Complaint: Injury to:: left, wrist Onset/Timin -: days(s) Other Extremity Injury: Wrist: Left Severity scale (0 -10): 7 Improves With: immobilization Worsens With: movement of extremity Context: injury Associated Symptoms: denies other symptoms Treatments Prior to Arrival: cold therapy - Related Data Home Medications Medication Instructions Recorded Confirmed Last Taken amLODIPine [Norvasc] 5 mg PO DAILY 05/30/15 05/30/15 Unknown Previous Rx's Medication Instructions Recorded Last Taken Type Acetaminophen [Acetaminophen TAB] 325 mg PO Q6HR PRN #30 tablet 08/21/16 Unknown Rx Multivitamin with Iron 1 each PO DAILY #30 tablet 08/21/16 Unknown Rx [Multivitamins with Iron] Ferrous Sulfate [Feosol 325 MG tab] 325 mg PO BID #60 tablet 08/22/16 Unknown Rx Methyldopa (Nf) [Aldomet] 500 mg PO BID #60 tablet 08/22/16 Unknown Rx Dicyclomine [Bentyl] 10 mg PO QID PRN #30 capsule 08/15/18 Unknown Rx traMADoL [Ultram] 50 mg PO Q6HR PRN #12 tablet 08/15/18 Unknown Rx Allergies Allergy/AdvReac Type Severity Reaction Status Date / Time No Known Allergies Allergy Verified 06/17/20 14:05 ED Review of Systems ROS: Stated complaint: LEFT WRIST INJURY/WORK RELATED Other details as noted in HPI ED Past Medical Hx - Past Medical History Hx Hypertension: Yes Hx Congestive Heart Failure: No Hx Diabetes: No Hx Deep Vein Thrombosis: No Hx Renal Disease: No Hx Sickle Cell Disease: No Hx Seizures: No Hx Asthma: No Hx COPD: No Hx HIV: No - Social History Smoking Status: Former Smoker Substance Use Type: None, Alcohol - Medications Home Medications: Home Medications Medication Instructions Recorded Confirmed Last Taken Type amLODIPine [Norvasc] 5 mg PO DAILY 05/30/15 05/30/15 Unknown History Acetaminophen [Acetaminophen TAB] 325 mg PO Q6HR PRN #30 tablet 08/21/16 Unknown Rx Multivitamin with Iron 1 each PO DAILY #30 tablet 08/21/16 Unknown Rx [Multivitamins with Iron] Ferrous Sulfate [Feosol 325 MG tab] 325 mg PO BID #60 tablet 08/22/16 Unknown Rx Methyldopa (Nf) [Aldomet] 500 mg PO BID #60 tablet 08/22/16 Unknown Rx Dicyclomine [Bentyl] 10 mg PO QID PRN #30 capsule 08/15/18 Unknown Rx traMADoL [Ultram] 50 mg PO Q6HR PRN #12 tablet 08/15/18 Unknown Rx ED Physical Exam - General Limitations: No Limitations General appearance: alert, in no apparent distress - Head Head exam: Present: atraumatic, normocephalic - Eye Eye exam: Present: normal appearance - ENT ENT exam: Present: mucous membranes dry - Respiratory Respiratory exam: Absent: accessory muscle use - Expanded Upper Extremity Exam Left Shoulder Exam: Present: normal inspection Upper Arm exam: Present: normal inspection Elbow exam: Present: normal inspection Forearm Wrist exam: Present: normal inspection Hand Wrist exam: Present: full ROM, tenderness, swelling Vascular: Present: normal capillary refill - Back Exam Back exam: Present: normal inspection, full ROM - Neurological Exam Neurological exam: Present: alert, oriented X3, normal gait - Psychiatric Psychiatric exam: Present: normal affect, normal mood - Skin Skin exam: Present: warm, dry, intact, normal color. Absent: rash ED Course Vital Signs 06/17/20 14:06 Temperature 99.2 F Pulse Rate 94 H Respiratory 20 Rate Blood Pressure 178/111 O2 Sat by Pulse 100 Oximetry ED Medical Decision Making - Radiology Data Radiology results: report reviewed Referring Physician:RANDY GAMEZPatient Name:MYRNA MARTÍNEZPatient ID:[id number] of :[id number]:FemaleAccession:[id number] Date:[id number] Status:Finalized Findings [facility] [address] [place] [address] XRay Report Signed Patient: MYRNA MARTÍNEZ MR#: [id number] : 1985 Acct:[id number] Age/Sex: 34 / F ADM Date: 06/17/20 Loc: ED Attending Dr: Ordering Physician: RICARDO KOROMA Date of Service: 06/17/20 Procedure(s): XR wrist 3+V LT Accession Number(s): [id number] cc: RICARDO KOROMA Fluoro Time In Minutes: XR wrist 3+V LT INDICATION / CLINICAL INFORMATION: Left wrist injury. COMPARISON: None available. FINDINGS: No acute fracture. Normal alignment. Joint spaces are preserved. No destructive osseous lesion or suspicious periosteal reaction. Impression: 1.No acute fracture. Signer Name: Rai Bingham MD Signed: 06/17/2020 2:59 PM Workstation Name: [id number] Transcribed By: MATI Dictated By: Rai Bingham MD Electronically Authenticated By: Rai Bingham MD Signed Date/Time: 06/17/201458 DD/ 57 TD/TT: - Medical Decision Making 34-year-old -[place] female presents to the emergency room for left wrist pain that she heard at work yesterday. Patient states that she was pushing carts and felt something pop. Patient comes in with pain and swelling. Patient has not taken anything for pain. Past medical history of hypertension. Patient is currently on amlodipine 10 mg daily. X-ray is negative for any fractures. Discussed with patient this is most likely a sprain will place her in a wrist brace. Tylenol or ibuprofen for pain management. Critical care attestation.: If time is entered above; I have spent that time in minutes in the direct care of this critically ill patient, excluding procedure time. ED Disposition Clinical Impression: Left wrist sprain Qualifiers: Encounter type: initial encounter Qualified Code(s): S63.502A - Unspecified sprain of left wrist, initial encounter Disposition: TO HOME OR SELFCARE Is pt being admited?: No Does the pt Need Aspirin: No Condition: Stable Instructions: Wrist Sprain, Adult Additional Instructions: X-ray is negative for any fractures. Discussed with patient this is most likely a sprain will place her in a wrist brace. Tylenol or ibuprofen for pain management. Referrals: PRIMARY CARE, [Primary Care Provider] - 3-5 Days JOSH MCDOWELL MD [Staff Physician] - 3-5 Days Forms: Work/School Release Form(ED)
--- NOTE | 2020-06-17 15:04 | XRay Report ---
XR wrist 3+V LT INDICATION / CLINICAL INFORMATION: Left wrist injury. COMPARISON: None available. FINDINGS: No acute fracture. Normal alignment. Joint spaces are preserved. No destructive osseous lesion or s uspicious periosteal reaction. Impression: 1.No acute fracture. Signer Name: Rai Bingham MD Signed: 06/17/2020 2:59 PM Workstation Name: [id number]
== END 2020-06-17 17:08 | disposition home or self-care (01) ==
LOC: ED 13:58
DX: S63.502A Unspecified sprain of left wrist, initial encounter (principal); I10 Essential (primary) hypertension; Z87.891 Personal history of nicotine dependence; Z79.899 Other long term (current) drug therapy; X58.XXXA Exposure to other specified factors, initial encounter; Y93.89 Activity, other specified; Y92.89 Other specified places as the place of occurrence of the external cause; Y99.8 Other external cause status